=== PATIENT | female | born 1990 | race Caucasian/White ===

== ENCOUNTER 2017-07-05 00:05 | Inpatient (IN) | payer OTHER ==
[~2017-07-05] VITALS: Ht 160 cm; Wt 70.0 kg
[2017-07-05] MEDS ORDERED: PRENATAL VITAM1 EAC7 PO (04:30)
--- NOTE | 2017-07-05 08:46 | PR ---
[facility] [address] [facility] [place], [place] [address] Signed Progress Notes IP Datetime Report Generated by CPDanielle: 07/05/2017 08:46 PROGRESS NOTES: [id number] Impression: Normal progression of labor Procedures: Intrauterine Pressure Catheter Plan: Continue present management; Anticipate Vaginal Delivery VITAL SIGNS: [id number] Vital Signs: Reviewed VS Notable Details: maternal tachycardia EXAM: [id number] Dilatation: 7.5 Effacement: 80 Station: -2 Uterine Contractions: every 3-4 minutes MEMBRANES: [id number] Membrane Status: Ruptured Amniotic Fluid Color: Clear Comments: Comfortable with Epidural, Scalpelectrode already applied. IUPC inserted Pitocin already off Continue monitoring. Fetus A: [id number] FHR Baseline: 130 Variability: Moderate 6-25bpm Accelerations: 15X15 Decelerations: Late; Variable Presentation: Vertex Fetus B: [id number] Signing Physician: Pito Sood MD CC: *Electronically Signed* 07/05/17 0846 PITO SOOD MD PATIENT NAME: MEAGHANCLIF FLOWER PROGRESS NOTE DATE OF : 90 PHYSICIAN: PITO SOOD MD RPT #: [id number] REPORT IS CONFIDENTIAL AND NOT TO BE RELEASED WITHOUT AUTHORIZATION
--- NOTE | 2017-07-05 09:35 | PR ---
[facility] [address] [facility] [place], [place] [address] Signed Progress Notes IP Datetime Report Generated by CPN: 07/05/2017 09:35 PROGRESS NOTES: [id number] Impression: Slow Progression of Labor Procedures: Intrauterine Pressure Catheter Plan: Augmentation VITAL SIGNS: [id number] Vital Signs: Reviewed VS Notable Details: maternal tachycardia EXAM: [id number] Dilatation: 7.5 Effacement: 80 Station: -2 Uterine Contractions: every 4-05 minutes MEMBRANES: [id number] Membrane Status: Ruptured Amniotic Fluid Color: Clear Comments: Contracitons spacing out and no change in past hour. Will restart Pitocin Fetus A: [id number] FHR Baseline: 120 Variability: Moderate 6-25bpm Accelerations: 15X15 Decelerations: Variable Presentation: Vertex Fetus B: [id number] Signing Physician: Catherine Sood MD CC: *Electronically Signed* 07/05/17 0935 CATHERINE SOOD MD PATIENT NAME: CLIF HARDING PROGRESS NOTE DATE OF : 90 PHYSICIAN: CATHERINE SOOD MD RPT #: [id number] REPORT IS CONFIDENTIAL AND NOT TO BE RELEASED WITHOUT AUTHORIZATION
--- NOTE | 2017-07-05 11:44 | NUR ---
07/05/17 1144 Evonne Jenkins 1136 - PT ARRIVED TO PACU. DENIES PAIN AND NAUSEA. PT TACHY R/T MEDICAITONS GIVEN. HOT DIP GALVANIZER AWARE. BLOOD PRESSURE DIFFICULT TO TAKE RELATED TO SHAKING. REPEATED AND OBTAINED AT 1140
--- NOTE | 2017-07-06 12:22 | OR ---
[facility] [address] [place], [place] [address] Signed DATE OF PROCEDURE: 07/05/17 PREOPERATIVE DIAGNOSIS Nonreassuring heart rate tracing, post term , delivered. POSTOPERATIVE DIAGNOSIS Nonreassuring heart rate tracing, post term , delivered. PROCEDURE Primary low transverse segment section. Delivery of live male . SURGEON: Pito Swenson MD. COMMERCIAL ESCROW OFFICER: Juju Haley MD ANESTHESIA: Epidural. ESTIMATED BLOOD LOSS: 600 mL. COMPLICATIONS: None. DRAINS: Franco to bladder. FINDINGS Live male inf ant, Apgars 9 and 9. Weight 7 pounds 4 ounces. was in a straight OP presentation and nuchal cord once, normal uterus, normal tubes and ovaries bilateral. DESCRIPTION OF PROCEDURE The patient was brought in the operating room, placed in supine position. After adequate epidural anesthesia was obtained, was prepped and draped in a sterile fashion. The patient already had Franco catheter in place. A Pfannenstiel skin incision was made with scalpel and extended through subcutaneous tissue with Bovie. The fascia was nicked with scalpel and extended transverse fashion using curved scissors. The underlying abdominal musculature was bluntly sharply from the fascia above and below the incision. The abdominal musculature was bluntly and sharply along the midline. Peritoneum was grasped, hemostats elevated and nicked with Metzenbaum scissors and extended vertical fashion using Metzenbaum scissors. The Tonny self-retaining retractor was inserted into the incision and tightened in place. The low e r uterine segment was examined. The bladder noted to be well below the area of dissection. So, a small leoncio was made in the lower uterine segment and the incision extended in transverse fashion using finger dissection. The was noted to be in vertex OP presentation. Infant head was easily delivered from the incision. Cord was noted to be around the neck once, Electronically Signed By: PITO SWENSON MD 07/06/17 1222 PATIENT NAME: CLIF HARDING OPERATIVE REPORT DATE OF : 90 PHYSICIAN: PITO SWENSON MD REPORT #: [id number] REPORT IS CONFIDENTIAL AND NOT TO BE RELEASED WITHOUT AUTHORIZATION [facility] [address] [place], [place] [address] Signed this was removed. The rest of the was easily delivered from the incision. Mouth and nose suctioned with bulb syringe while the cord was doubly clamped and cut. The passed off table in good condition to awaiting nurse. Placenta was manually removed and uterine cavity explored with lap pad to remove any retained membranes. An angle stitch of 0 Monocryl was placed in one end of the incision and running locking stitch of 0 Monocryl starting at the other end used to close the incision. A 2nd running stitch of 0 Monocryl was used to imbricate the 1st layer. Good hemostasis was noted. The entire pelvis was irrigated, suctioned, and examined and any superficial bleeding spots cauterized with the Bovie. The Tonny retractor was then removed. A sheet of ACell placed over lower uterine segment and then the anterior wall of peritoneum closed using a running stitch of 2-0 Vicryl suture. The abdominal wall incision was closed using interrupted stitches of 0 Vicryl suture. The abdominal wall incision was irrigated, suctioned, examined, any bleeding spots cauterized with the Bovie. Powdered ACell was then sprinkled on the abdominal musculature and the fascia closed using 2 running stitch of 0 Vicryl suture meeting in the midline. The subcutaneous tissue was irrigated, suctioned, examined any bleeding spots, cauterized with the Bovie. The remaining powdered ACell sprinkled on the subcutaneous tissue, which was closed using interrupted stitches of 3-0 Vicryl sutures. Skin was reapproximated using skin clips. The patient tolerated the procedure well, went to recovery room in good condition. Sponge, needle, instrument count were correct at the end of procedure. MD BRIGITTE Arcos/Modl /[id number] cc: Juju Haley MD Electronically Signed By: PITO SWENSON MD 07/06/17 1222 PATIENT NAME: CLIF HARDING OPERATIVE REPORT DATE OF : 90 PHYSICIAN: PITO SWENSON MD REPORT #: [id number] REPORT IS CONFIDENTIAL AND NOT TO BE RELEASED WITHOUT AUTHORIZATION
--- NOTE | 2017-07-07 13:03 | PR ---
[facility] [address] [place] [address] Signed PP Progress Notes Datetime Report Generated by CPN: 07/07/2017 13:03 SUBJECTIVE: [id number] Pain: Within normal limits Nausea/Vomiting: Denies Vital Signs: [id number] Vital Signs: Reviewed; Within Normal Limits Notable Details: PP Hgb/Hct = 9.3/26.0 EXAM: [id number] Abdomen/Uterus: Normal Lochia: Normal Extremities: Normal Incision: Normal IMPRESSION/PLAN/PROCEDURES: [id number] Impression: Normal progression Plan: Discharge Procedures: None Progress Notes: Doing well, without complaint. Ready to go home. Signing Physician: Catherine Sood MD CC: *Electronically Signed* 07/07/17 1303 CATHERINE SOOD MD PATIENT NAME: CLIF HARDING PROGRESS NOTE DATE OF : 90 PHYSICIAN: CATHERINE SOOD MD RPT #: [id number] REPORT IS CONFIDENTIAL AND NOT TO BE RELEASED WITHOUT AUTHORIZATION
== END 2017-07-07 14:45 | disposition home or self-care (01) | DRG 766 ==
LOC: FBC 00:05
PROVIDERS: General Practice; ADMIT Obstetrics & Gynecology
PROC: 3E033VJ Introduction of Other Hormone into Peripheral Vein, Percutaneous Approach (ICD-10-PCS; 2017-07-05)
PROC: 10D00Z1 Extraction of Products of Conception, Low, Open Approach (ICD-10-PCS; principal; 2017-07-05 10:48)
DX: O76 Abnormality in fetal heart rate and rhythm complicating labor and delivery (principal); O48.0 Post-term pregnancy; Z3A.41 41 weeks gestation of pregnancy; Z37.0 Single live birth; R00.0 Tachycardia, unspecified; O69.81X0 Labor and delivery complicated by cord around neck, without compression, not applicable or unspecified
CPT/HCPCS: 01960; 01961; 36415; 85027; 90707; C1763; J0690; J2175; J2274; J2300; J2370; J2405; J2590; J2795; J3010; J3105; J7120

== ENCOUNTER 2021-01-06 18:05 | Inpatient (IN) | payer OTHER ==
[~2021-01-06 18:05] MED LIST: PRENATAL VITAM1 EAC7 PO
--- NOTE | 2021-01-06 22:08 | NUR ---
01/06/212207 Mirta Rivas 2146 PT ARRIVED IN PACU WIDE AWAKE C/O FEELING COLD. WARM BLANKETS GIVEN. HOLDING BABY SKIN TO SKIN. 2154 MOM HOLDING BABY SKIN TO SKIN. 2199 MOM BREAST FEEDING BABY. NO C/O'S.
--- NOTE | 2021-01-07 08:39 | OR ---
[facility] [address] [place], [place] [address] Signed DATE OF OPERATION: 01/06/2021 SURGEON: Larissa Cyr DO MERCHANDISE TEAM MANAGER: Pito Swenson MD PREOPERATIVE DIAGNOSES: Spontaneous labor, history of prior delivery, 39 weeks' gestation. POSTOPERATIVE DIAGNOSES: Spontaneous labor, history of prior delivery, 39 weeks' gestation, nuchal cord x2. BLOOD LOSS: 500 mL. FINDINGS: Filmy peritoneal adhesions across anterior uterus extending to fundus, otherwise normal-appearing uterus, bilateral tubes and ovaries. Low anterior placenta. Viable female term delivered in the YOSI position with weight of 6 pounds 12 ounces. INDICATIONS: Clif is a 30-year-old G2, P1-0-0-1 with history of prior , scheduled for repeat on 01/07/2021, who came in tonight with complaints of contractions. Upon arrival, she was found to be 1 cm dilated and nita every 2-3 minutes. She made change to 2 cm for over the course of an hour, was admitted to Labor and Delivery. Risks, benefits, and alternatives to repeat delivery were discussed and she elected to proceed. PROCEDURE IN DETAIL: The patient was taken to the operating room where she was given 2 g of Ancef and spinal anesthesia was placed. She was then positioned in supine position with a leftward tilt. A Franco catheter was inserted. SCD's were placed and she was prepped and draped in the normal sterile fashion. Prior Pfannenstiel incision was excised with a scalpel and incision was carried down to the underlying layer of fascia. Fascial incision was extended laterally with Hernández scissors. Then, the inferior margin was grasped with Savita's, elevated and the underlying rectus muscle dissected off bluntly and sharply Electronically Signed By: LARISSA CYR DO 01/07/21 0839 PATIENT NAME: CLIF HARDING OPERATIVE REPORT DATE OF : 90 REPORT #: [id number] PHYSICIAN: LARISSA CYR DO PCP: AVE STERN DO REPORT IS CONFIDENTIAL AND NOT TO BE RELEASED WITHOUT AUTHORIZATION [facility] [address] [place], [place] [address] Signed with Hernández scissors. Inferior margin was released. Superior margin was grasped with Savita clamps, elevated in a similar manner, and underlying rectus muscle was dissected off bluntly and sharply with Hernández scissors through minimal scar tissue. Peritoneum was entered bluntly and filmy adhesions were noted. They were taken down bluntly and with Bovie cautery. Tonny retractor was placed. Low-transverse uterine incision was made with a scalpel. Incision was extended laterally digitally and the 's head was grasped, easily elevated taking care to maintain flexion, and delivered through the hysterotomy in the YOSI position. Remainder of the infant's body was delivered easily. Cord was immediately doubly clamped and cut and baby was handed off to waiting nursery RN. Segment of cord was collected and cord blood was collected for type and Farrukh. Placenta was manually expressed and noted to have a centrally inserted 3-vessel cord. Uterus was cleaned of clots, membranes, and debris. T-clamps were placed at each apex and the inferior margin of the hysterotomy. The right apex was secured with 0 monocryl in a simple interrupted fashion. Uterus was closed in 2-layer closure with 0 Monocryl, 1st in a running locked fashion. A single pulsating vessel near the right apex at the superior margin, and a figure of eight stitch of 0 Monocrylwas placed with resulting hemostasis. A second layer of closure was performed with 0 monocryl in an imbricating manner. Pelvis was suction irrigated with warm sterile saline. Edges of the peritoneum were noted to be oozing due to the filmy adhesions. Tonny retractor was removed and David powder was applied with resulting hemostasis. ACell sheet was applied over the hysterotomy. Peritoneum was closed with 2-0 Vicryl in a running fashion. The rectus muscle and overlying fascia were examined for bleeding vessels. Small perforating vessels were cauterized with Bovie cautery. Rectus muscle was reapproximated with 0 Vicryl in a simple interrupted fashion. ACell powder was applied overlying the rectus, fascia was closed in a running fashion, working from each apex to midline, first from the right apex then from the left and meeting in the middle. Subcutaneous layer was examined and small perforating vessels were cauterized with Bovie cautery. Subcutaneous layer was then reapproximated with 3-0 Vicryl in a simple interrupted fashion. Skin was closed with chel. Uterus was Crede'd. Fundus was noted to be very firm and without clots. All lap and instrument counts were correct x2. Sterile dressing was applied. The patient was taken to the LDRP room to recover in excellent condition with her baby. Electronically Signed By: LARISSA CYR, 01/07/21 0839 PATIENT NAME: AFRICAKEVCLIF OPERATIVE REPORT DATE OF : 90 REPORT #: [id number] PHYSICIAN: LARISSA CYR DO PCP: AVE SETRN DO REPORT IS CONFIDENTIAL AND NOT TO BE RELEASED WITHOUT AUTHORIZATION [address] [place] [address] Signed DO JEFFERY Waite/VERONICA /[id number] Copies: ~ Electronically Signed By: LARISSA CYR DO 01/07/21 0839 PATIENT NAME: CLIF HARDING OPERATIVE REPORT DATE OF : 90 REPORT #: [id number] PHYSICIAN: LARISSA CYR DO PCP: AVE STERN DO REPORT IS CONFIDENTIAL AND NOT TO BE RELEASED WITHOUT AUTHORIZATION
--- NOTE | 2021-01-07 10:21 | PR ---
[facility] [address] [facility] [place], [place] [address] Signed PP Progress Notes Datetime Report Generated by CPDanielle: 01/07/2021 10:21 SUBJECTIVE: [id number] Pain: Within Normal Limits Nausea/Vomiting: Denies Flatus: No Bowel Movement: No Vital Signs: [id number] Vital Signs: Reviewed; Within Normal Limits EXAM: Ongoing Cardiovascular: Normal Respiratory: Normal Abdomen/Uterus: Normal Lochia: Normal Breasts: Normal Extremities: Normal Incision: Normal Progress: Normal Exam Comments: Dressing without strikethrough Fundus firm below umbilicus No edema bilateral lower extremities negative Ema's IMPRESSION/PLAN/PROCEDURES: [id number] Impression: Normal Progression Plan: Continue Present Management Procedures: Rhogam Progress Notes: 30 yo G2now P2002 POD#1 s/p RLTCS Admitted for spontaneous onset of labor Uncomplicated RLTCS Normal postop progression Maternal blood type O neg, baby A pos -anticipate rhogam Anticipate DC to home tomorrow or Thursday Signing Physician: Larissa Cyr DO *Electronically Signed* 01/07/21 1021 LARISSA CYR DO PATIENT NAME: CLIF HARDING PROGRESS NOTE DATE OF : 90 PHYSICIAN: LARISSA CYR DO RPT #: [id number] REPORT IS CONFIDENTIAL AND NOT TO BE RELEASED WITHOUT AUTHORIZATION [facility] [address] [place], [place] [address] Signed Copies: ~ *Electronically Signed* 01/07/21 1021 LARISSA CYR DO PATIENT NAME: CLIF HARDING PROGRESS NOTE DATE OF : 90 PHYSICIAN: LARISSA CYR DO RPT #: [id number] REPORT IS CONFIDENTIAL AND NOT TO BE RELEASED WITHOUT AUTHORIZATION
--- NOTE | 2021-01-08 07:20 | PR ---
[facility] [address] [facility] [place] [address] Signed PP Progress Notes Datetime Report Generated by CPN: 01/08/2021 07:19 SUBJECTIVE: [id number] Pain: Within Normal Limits Nausea/Vomiting: Denies Flatus: Yes Bowel Movement: No Vital Signs: [id number] Vital Signs: Reviewed; Within Normal Limits EXAM: Ongoing Cardiovascular: Normal Respiratory: Normal Abdomen/Uterus: Normal Lochia: Normal Breasts: Normal Extremities: Normal Incision: Normal Progress: Normal Exam Comments: Doing well Incision c/d/i, well-approximated Fundus firm below umbilicus No lower extremity edema IMPRESSION/PLAN/PROCEDURES: [id number] Impression: Normal Progression Plan: Continue Present Management; Remove [place] Procedures: Rhogam Progress Notes: POD#2 s/p RLTCS progressing very well ambulating, voiding, tolerating regular diet well partner vasectomy for contraception Anticipate DC to home vs boarder status today, pending baby's bilirubin Signing Physician: Larissa Cyr DO Copies: *Electronically Signed* 01/08/21 07 LARISSA CYR DO PATIENT NAME: CLIF HARDING PROGRESS NOTE DATE OF : 90 PHYSICIAN: LARISSA CYR DO RPT #: [id number] REPORT IS CONFIDENTIAL AND NOT TO BE RELEASED WITHOUT AUTHORIZATION [place] [id number] [place], [place] [address] Signed ~ *Electronically Signed* 01/08/21 0719 LARISSA CYR DO PATIENT NAME: CLIF HARDING PROGRESS NOTE DATE OF : 90 PHYSICIAN: LARISSA CYR DO RPT #: [id number] REPORT IS CONFIDENTIAL AND NOT TO BE RELEASED WITHOUT AUTHORIZATION
== END 2021-01-08 10:07 | disposition home or self-care (01) | DRG 788 ==
LOC: FBCO 18:05 → FBC 19:37
PROVIDERS: ADMIT Obstetrics & Gynecology; ATTEND Obstetrics & Gynecology
PROC: 10D00Z1 Extraction of Products of Conception, Low, Open Approach (ICD-10-PCS; principal; 2021-01-06 20:20)
PROC: 3E0234Z Introduction of Serum, Toxoid and Vaccine into Muscle, Percutaneous Approach (ICD-10-PCS; 2021-01-07)
DX: O34.211 Maternal care for low transverse scar from previous cesarean delivery (principal); N85.8 Other specified noninflammatory disorders of uterus; Z3A.39 39 weeks gestation of pregnancy; Z37.0 Single live birth; O69.1XX0 Labor and delivery complicated by cord around neck, with compression, not applicable or unspecified; O26.893 Other specified pregnancy related conditions, third trimester; Z67.41 Type O blood, Rh negative; Z87.891 Personal history of nicotine dependence
CPT/HCPCS: 36415; 83030; 85027; 86850; 86870; 86900; 86901; J0690; J1650; J1885; J2001; J2175; J2274; J2300; J2405; J2550; J2590; J2765; J2790; J7121

== ENCOUNTER 2021-12-26 09:35 | Emergency (ER) | payer BC ==
[~2021-12-26] VITALS: Ht 152.4 cm; Wt 69.4 kg
--- OUTSIDE RECORDS SUMMARY | 2021-12-26 09:38 | XMS ---
PreManage Notification: CLIF HARDING Security Certified Optician Events No recent Security Events currently on file CRITERIA MET - ED - Positive COVID-19 Lab Result - [facility] Julio Mendez DO [facility] Current PHONE: Unknown ALESSIO PROCTOR Physician Assistant Tony RENDON PHONE: [phone] Elias has no Care Guidelines for this patient. Etelvina VISIT COUNT (12 MO.) Nathan Bocanegra TOTAL 1 NOTE: Visits indicate total known visits. ED/UCC VISIT TRACKING (12 MO.) 12/26/2021 09:36 [facility] [place] TYPE: Emergency COMPLAINT: - VAGINAL BLEEDING INPATIENT VISIT TRACKING (12 MO.) 01/06/2021 19:37 [facility] [place] TYPE: [facility] COMPLAINT: - LABOR DIAGNOSES: - Labor and delivery complicated by cord around neck, with compression, not applicable or unspecified - Other specified related conditions, third trimester - 39 weeks gestation of - Labor and delivery complicated by cord around neck, without compression, not applicable or unspecified - Labor and delivery complicated by cord around neck, without compression, not applicable or unspecified - Single live - Other specified noninflammatory disorders of uterus - Type O blood, Rh negative - 39 weeks gestation of - Personal history of nicotine dependence - Maternal care for low transverse scar from previous delivery - Single live [email or web address]
[2021-12-26] MEDS ORDERED: HYDROCODON-ACE1 EA10 PO (11:21)
--- NOTE | 2021-12-27 17:14 | PATH ---
[facility] [place] [facility] [address] [facility] [place], [place] [address] Signed SPECIMEN(S): A PRODUCTS OF CONCEPTION SPECIMEN SOURCE: A. PRODUCTS OF CONCEPTION CLINICAL HISTORY: Complete miscarriage, vaginal bleeding. FINAL PATHOLOGIC DIAGNOSIS: Products of conception: - Fragments of immature chorionic villi admixed with decidua, consistent with products of conception. - See comment. COMMENT: Some of the immature chorionic villi demonstrate hydropic change. Two populations of chorionic villi are not identified. A p57 immunohistochemical stain to evaluate for complete hydatidiform mole is pending and will be reported in an addendum. NAL:cml:C2NR MICROSCOPIC EXAMINATION: Histologic sections of all submitted blocks are examined by light microscopy. These findings, together with the gross examination, support the pathologic diagnosis. GROSS DESCRIPTION: The specimen, labeled "LH, products of conception," is received in formalin and consists of membranous and kim-brown, spongy tissue fragments with mucus and clot material measuring 9.1 x 8.2 x 1.3 cm in aggregate. /embryonic tissues are not grossly identified. Vp Hr Diversity sections are submitted in cassettes (A1-A3). AT (under the direct supervision of a pathologist) The Gross Description was prepared using a voice recognition system. The report was reviewed for accuracy; however, sound-alike word errors, addition and/or deletions may occur. If there is any question about this report, please contact Client Services. PERFORMING LABORATORY: The technical component was performed by [facility], [address] [place] [id number] (Rug Cleaning Supervisor: Jeannie Logan MD; CLIA# [id number]). s PATIENT NAME: CLIF HARDING PATHOLOGY DATE OF : 90 REPORT #: [id number] PHYSICIAN: CASEY PATHOLOGY PCP: AVE STERN DO REPORT IS CONFIDENTIAL AND NOT TO BE RELEASED WITHOUT AUTHORIZATION [facility] [place] [facility] [address] [place], [place] [address] Signed Professional interpretation was performed by [facility], [address] [address] (CLIA# [id number]). Diagnostician: Charo Stack MD Pathologist Electronically Signed 12/27/2021 Copies: ~ PATIENT NAME: CLIF HARDING PATHOLOGY DATE OF : 90 REPORT #: [id number] PHYSICIAN: CASEY PATHOLOGY PCP: AVE STERN DO REPORT IS CONFIDENTIAL AND NOT TO BE RELEASED WITHOUT AUTHORIZATION
== END 2021-12-26 11:41 | disposition home or self-care (01) ==
LOC: ED 09:35
DX: O03.9 Complete or unspecified spontaneous abortion without complication (principal); Z87.891 Personal history of nicotine dependence; Z79.899 Other long term (current) drug therapy
CPT/HCPCS: 80048; 84702; 85025; 86900; 96374; 99284-25; J2405; J2790